=== PATIENT | female | born 1980 | race Caucasian/White ===

== ENCOUNTER 2017-04-18 13:44 | Emergency (ER) | payer OTHER ==
--- NOTE | 2017-04-18 15:09 | DIAGNOSTIC IMAGING REPORT ---
PROCEDURE: XR FOOT 3 VIEWS - RIGHT INDICATION: PAIN TECHNIQUE: Three views. COMPARISON: None. FINDINGS: Cortical defects of the proximal fifth metatarsal suggestive of healed fracture. There is no acute fracture or dislocation. Joint spaces and soft tissues are normal. IMPRESSION: 1. No acute fracture 2. Old right fifth metatarsal fracture
--- NOTE | 2017-04-18 15:17 | ED ORDER SUMMARY ---
..... Patient: VICTORIANO GARVIN OrderSheet [facility] VisitID: [id number] [address] [place] [address] 36y, F Registration Date/Time: 04/18/2017 ORDER SHEET Weight: 91.6 kg (stated) Allergies: Zithromax GENERAL ORDERS: Foot 3V Right Urgent (14:44 04/18/2017 Krysten BEACH) (Ack 14:47 [facility] ER Tech1) Splint (LE) (Left) (needs post op shoe) (15:09 04/18/2017 Krysten BEACH) (Ack 15:29 [facility] ER Tech1) MEDICATION ORDERS: IV FLUIDS: ORDER SHEET NOTES: [Electronically signed by Sheriff Nelly Jensen (15:47 04/18/2017)] [Electronically signed by Bharati hCarlton PA-C (21:44 04/18/2017)] [Electronically locked/signed by Sheriff Nelly Jensen (15:47 04/18/2017)]
--- NOTE | 2017-04-18 15:17 | ED CLINICAL REPORT ---
Clinical Report - Physicians/Mid Levels [facility] [address] [place] [address] 04/18/2017 13:45 Patient: RENETTA GARVIN Time Seen: 14:12; initial patient contact. Arrived- By private vehicle. Historian- patient. HISTORY OF PRESENT ILLNESS Chief Complaint: LOWER EXTREMITY PAIN. Modifying factors- worsened by standing. Relieved by walking. This started 6 weeks; ( Left foot pain getting worst. None injury related, going on for 6 weeks now.). Severity is described as being moderate. It has become recently worse. The quality is noted to be aching and "pain". Symptoms located in the area of the right foot. Location: lateral. The patient has had swelling. She has had difficulty walking. Patient denies an injury. Similar symptoms previously: None. Recent medical care: Not recently seen/assessed. REVIEW OF SYSTEMS All systems otherwise negative, except as recorded above. PAST HISTORY See nurses notes. Problems: Dental Caries. Acute Pain. Sprain. Contusion. Chronic Back Pain. Gastroesophageal Reflux. Immunizations. Tonsillitis. Strep Throat. Hypertension. Fibromyalgia. Tetanus Status. Medications: Cyclobenzaprine HCl Oral 10 mg, at bedtime. Cymbalta Oral. Lisinopril Oral 10 mg, daily. Ranitidine HCl Oral 150 mg, 2x a day. Allergies: Zithromax. SOCIAL HISTORY Smoker- current status unknown. Alcohol use. No drug use. FAMILY HISTORY Negative. ADDITIONAL NOTES The nursing notes have been reviewed with agreement regarding the chief complaint, HPI, ROS, PMH and patient medications and allergies. PHYSICAL EXAM Vital Signs: Have been reviewed. Appearance: Alert. Oriented X3. No acute distress. Skin: Skin intact. Skin warm and dry. Normal skin color. Normal skin turgor. Extremities: Right foot: moderate tenderness and mild swelling located in the lateral aspect of the mid foot and fifth toe(s). Limited weight bearing secondary to pain. Neurovascular intact distally. Extremities otherwise negative. Neuro: Oriented X 3. LABS, X-RAYS, AND EKG Rt Foot X-ray: (Name: Renetta Garvin : 1980 MR#: [id number] Ordering Provider: MODESTA FLORENCIA Exam(s): XR FOOT 3 VIEWS - RIGHT Date of Exam: 04/18/2017 __ PROCEDURE: XR FOOT 3 VIEWS - RIGHT INDICATION: PAIN TECHNIQUE: Three views. COMPARISON: None. FINDINGS: Cortical defects of the proximal fifth metatarsal suggestive of healed fracture. There is no acute fracture or dislocation. Joint spaces and soft tissues are normal. IMPRESSION: 1. No acute fracture 2. Old right fifth metatarsal fracture Electronically Final signed by:Eduar Mccain MD 04/18/2017 3:09:28 PM Technologist: KESHAV). The X-rays were independently viewed by me, interpreted by the radiologist and discussed with the radiologist. PROGRESS AND PROCEDURES PROCEDURES (post op shoe given). Course of Care: Patient is stable. Patient/family counseled. CLINICAL IMPRESSION Closed nondisplaced fracture of the right fifth metatarsal. INSTRUCTIONS Apply ice. Elevate affected areas above chest level. Wear splint (post op shoe). Wear post-op shoe for three weeks as needed and until better. Your Current Medications: CONTINUE TAKING THE FOLLOWING MEDICATIONS: Cyclobenzaprine HCl Oral : 10 mg at bedtime. Cymbalta Oral. Lisinopril Oral : 10 mg daily. Ranitidine HCl Oral : 150 mg 2x a day. Prescription Medications: Hydrocodone/APAP 5mg / 325mg: take 1 orally every 8 hours as needed for pain. Dispense ten (10). No refill. Follow-up: Follow up with an orthopedic surgeon- as recommended by your primary care physician. Reason for referral: right 5th mtp cortical defect with no history of trauma, needs further workup. Understanding of the discharge instructions verbalized by patient. [facility]-up with: [facility], , [address], , [place], [address] Follow up Thursday. Reason for referral: cortical defect right 5th mtp. (Electronically signed by Florencia Charlton PA-C 04/18/2017 21:44)
--- NOTE | 2017-04-18 15:17 | ED NURSING NOTES ---
Clinical Report - Nurses [facility] [place] [address] 04/18/2017 13:45 Patient: VICTORIANO GARVIN TRIAGE Triage time 13:52. Acuity: LEVEL 3. Chief Complaint: RIGHT LOWER EXTREMITY PAIN. --13:57 Sheriff Jensen R.N. 13:52 04/18/17. BP: 111/55. HR: 85. RR: 20. O2 saturation: 99%. Temp: 98 F. Pain level now: 05/02. --13:57 Sheriff Jensen R.N. Weight: 91.6 kg stated. Height/Length: 65 inches Per Patient. BMI: 33.6. --13:56 Sheriff Jensen R.N. Medications Cyclobenzaprine HCl Oral 10 mg, at bedtime. Cymbalta Oral. Lisinopril Oral 10 mg, daily. Ranitidine HCl Oral 150 mg, 2x a day. --13:54 Sheriff Jensen R.N. Allergies Zithromax. --13:54 Sheriff Jensen R.N. History Arrived by private vehicle. Historian: patient. Accompanied by friend. No injury occurred. Provoking / relieving factors: worsened by standing. ( Left foot pain getting worst. None injury related, going on for 6 weeks now.). PAST MEDICAL HX: Tetanus status: up-to-date. Immunizations: up-to-date. SURGERY HX: Cholecystectomy. SOCIAL HX: Smoker- current status unknown (4 Cigarettes daily). No alcohol use or drug use. FALL RISK ASSESSMENT: Fall risk assessment completed. No fall risk identified. NUTRITIONAL RISK ASSESSMENT: The nutritional risk assessment revealed no deficiencies. FUNCTIONAL ASSESSMENT: Functional assessment: no impairments noted. LEARNING NEEDS ASSESSMENT: The learning needs assessment revealed no barriers. SKIN INTEGRITY ASSESSMENT: Skin integrity risk assessment completed. No skin integrity risk identified. --13:57 Sheriff Jensen R.N. PROBLEMS: Dental Caries. Acute Pain. Sprain. Contusion. Chronic Back Pain. Gastroesophageal Reflux. Immunizations. Tonsillitis. Strep Throat. LNMP - Last Normal Menstrual Period. Hypertension. Fibromyalgia. Tetanus Status. --13:54 Sheriff Jensen R.N. PHYSICAL ASSESSMENT Ambulatory to room. GENERAL / NEURO / PSYCH: Oriented X 4. Alert. Appears in no acute distress. EXTREMITIES: Right foot: (Pain). SKIN: Skin intact. Skin is warm and dry. --13:57 Sheriff Jensen R.N. NURSING PROGRESS NOTES Two patient identifiers checked. Call light placed in reach. Side rails up x 2. Bed placed in lowest position. Brakes of bed on. --13:58 Sheriff Jensen R.N. DISPOSITION / DISCHARGE No learning barriers present. Discharge instructions provided and reviewed with the patient. Reviewed medication(s) side effects, precautions, dosing and course information. Prescription(s) given to the patient. Follow up contact number [phone]. Patient verbalized understanding. Written instructions provided in [place]uran. The patient was discharged by the physician event marketing assistant. She was discharged home and accompanied by developer prover upholstering. She left the Emergency Department ambulatory and via private vehicle. [employer] Consultant driving. --15:47 Sheriff Jensen R.N. Locked/Released at 04/18/2017 15:47 by Sheriff Jensen R.N.
--- NOTE | 2017-04-18 15:17 | ED CLINICAL REPORT ---
Clinical Report - Physicians/Mid Levels [facility] [address] [place] [address] 04/18/2017 13:45 Patient: RENETTA GARVIN Time Seen: 14:12; initial patient contact. Arrived- By private vehicle. Historian- patient. HISTORY OF PRESENT ILLNESS Chief Complaint: LOWER EXTREMITY PAIN. Modifying factors- worsened by standing. Relieved by walking. This started 6 weeks; ( Left foot pain getting worst. None injury related, going on for 6 weeks now.). Severity is described as being moderate. It has become recently worse. The quality is noted to be aching and "pain". Symptoms located in the area of the right foot. Location: lateral. The patient has had swelling. She has had difficulty walking. Patient denies an injury. Similar symptoms previously: None. Recent medical care: Not recently seen/assessed. REVIEW OF SYSTEMS All systems otherwise negative, except as recorded above. PAST HISTORY See nurses notes. Problems: Dental Caries. Acute Pain. Sprain. Contusion. Chronic Back Pain. Gastroesophageal Reflux. Immunizations. Tonsillitis. Strep Throat. Hypertension. Fibromyalgia. Tetanus Status. Medications: Cyclobenzaprine HCl Oral 10 mg, at bedtime. Cymbalta Oral. Lisinopril Oral 10 mg, daily. Ranitidine HCl Oral 150 mg, 2x a day. Allergies: Zithromax. SOCIAL HISTORY Smoker- current status unknown. Alcohol use. No drug use. FAMILY HISTORY Negative. ADDITIONAL NOTES The nursing notes have been reviewed with agreement regarding the chief complaint, HPI, ROS, PMH and patient medications and allergies. PHYSICAL EXAM Vital Signs: Have been reviewed. Appearance: Alert. Oriented X3. No acute distress. Skin: Skin intact. Skin warm and dry. Normal skin color. Normal skin turgor. Extremities: Right foot: moderate tenderness and mild swelling located in the lateral aspect of the mid foot and fifth toe(s). Limited weight bearing secondary to pain. Neurovascular intact distally. Extremities otherwise negative. Neuro: Oriented X 3. LABS, X-RAYS, AND EKG Rt Foot X-ray: (Name: Renetta Garvin : 1980 MR#: [id number] Ordering Provider: MODESTA FLORENCIA Exam(s): XR FOOT 3 VIEWS - RIGHT Date of Exam: 04/18/2017 __ PROCEDURE: XR FOOT 3 VIEWS - RIGHT INDICATION: PAIN TECHNIQUE: Three views. COMPARISON: None. FINDINGS: Cortical defects of the proximal fifth metatarsal suggestive of healed fracture. There is no acute fracture or dislocation. Joint spaces and soft tissues are normal. IMPRESSION: 1. No acute fracture 2. Old right fifth metatarsal fracture Electronically Final signed by:Eduar Mccain MD 04/18/2017 3:09:28 PM Technologist: KESHAV). The X-rays were independently viewed by me, interpreted by the radiologist and discussed with the radiologist. PROGRESS AND PROCEDURES PROCEDURES (post op shoe given). Course of Care: Patient is stable. Patient/family counseled. CLINICAL IMPRESSION Closed nondisplaced fracture of the right fifth metatarsal. INSTRUCTIONS Apply ice. Elevate affected areas above chest level. Wear splint (post op shoe). Wear post-op shoe for three weeks as needed and until better. Your Current Medications: CONTINUE TAKING THE FOLLOWING MEDICATIONS: Cyclobenzaprine HCl Oral : 10 mg at bedtime. Cymbalta Oral. Lisinopril Oral : 10 mg daily. Ranitidine HCl Oral : 150 mg 2x a day. Prescription Medications: Hydrocodone/APAP 5mg / 325mg: take 1 orally every 8 hours as needed for pain. Dispense ten (10). No refill. Follow-up: Follow up with an orthopedic surgeon- as recommended by your primary care physician. Reason for referral: right 5th mtp cortical defect with no history of trauma, needs further workup. Understanding of the discharge instructions verbalized by patient. Follow-up with: [facility], , [address], , [place], [address] Follow up Thursday. Reason for referral: cortical defect right 5th mtp. (Electronically signed by Florencia Charlton PA-C 04/18/2017 21:44)
--- NOTE | 2017-04-18 15:17 | ED NURSING NOTES ---
Clinical Report - Nurses [facility] [place] [address] 04/18/2017 13:45 Patient: VICTORIANO GARVIN TRIAGE Triage time 13:52. Acuity: LEVEL 3. Chief Complaint: RIGHT LOWER EXTREMITY PAIN. --13:57 Sheriff Jensen R.N. 13:52 04/18/17. BP: 111/55. HR: 85. RR: 20. O2 saturation: 99%. Temp: 98 F. Pain level now: 05/02. --13:57 Sheriff Jensen R.N. Weight: 91.6 kg stated. Height/Length: 65 inches Per Patient. BMI: 33.6. --13:56 Sheriff Jensen R.N. Medications Cyclobenzaprine HCl Oral 10 mg, at bedtime. Cymbalta Oral. Lisinopril Oral 10 mg, daily. Ranitidine HCl Oral 150 mg, 2x a day. --13:54 Sheriff Jensen R.N. Allergies Zithromax. --13:54 Sheriff Jensen R.N. History Arrived by private vehicle. Historian: patient. Accompanied by friend. No injury occurred. Provoking / relieving factors: worsened by standing. ( Left foot pain getting worst. None injury related, going on for 6 weeks now.). PAST MEDICAL HX: Tetanus status: up-to-date. Immunizations: up-to-date. SURGERY HX: Cholecystectomy. SOCIAL HX: Smoker- current status unknown (4 Cigarettes daily). No alcohol use or drug use. FALL RISK ASSESSMENT: Fall risk assessment completed. No fall risk identified. NUTRITIONAL RISK ASSESSMENT: The nutritional risk assessment revealed no deficiencies. FUNCTIONAL ASSESSMENT: Functional assessment: no impairments noted. LEARNING NEEDS ASSESSMENT: The learning needs assessment revealed no barriers. SKIN INTEGRITY ASSESSMENT: Skin integrity risk assessment completed. No skin integrity risk identified. --13:57 Sheriff Jensen R.N. PROBLEMS: Dental Caries. Acute Pain. Sprain. Contusion. Chronic Back Pain. Gastroesophageal Reflux. Immunizations. Tonsillitis. Strep Throat. LNMP - Last Normal Menstrual Period. Hypertension. Fibromyalgia. Tetanus Status. --13:54 Sheriff Jensen R.N. PHYSICAL ASSESSMENT Ambulatory to room. GENERAL / NEURO / PSYCH: Oriented X 4. Alert. Appears in no acute distress. EXTREMITIES: Right foot: (Pain). SKIN: Skin intact. Skin is warm and dry. --13:57 Sheriff Jensen R.N. NURSING PROGRESS NOTES Two patient identifiers checked. Call light placed in reach. Side rails up x 2. Bed placed in lowest position. Brakes of bed on. --13:58 Sheriff Jensen R.N. DISPOSITION / DISCHARGE No learning barriers present. Discharge instructions provided and reviewed with the patient. Reviewed medication(s) side effects, precautions, dosing and course information. Prescription(s) given to the patient. Follow up contact number [phone]. Patient verbalized understanding. Written instructions provided in Cook Islander. The patient was discharged by the physician assistant auto center manager. She was discharged home and accompanied by museum service scheduler. She left the Emergency Department ambulatory and via private vehicle. Campus Manager driving. --15:47 Sheriff Jensen R.N. Locked/Released at 04/18/2017 15:47 by Sheriff Jensen R.N.
--- NOTE | 2017-04-18 15:17 | ED ORDER SUMMARY ---
..... Patient: VICTORIANO GARVIN OrderSheet [facility] VisitID: [id number] [address] [place] [address] 36y, F Registration Date/Time: 04/18/2017 ORDER SHEET Weight: 91.6 kg (stated) Allergies: Zithromax GENERAL ORDERS: Foot 3V Right Urgent (14:44 04/18/2017 Krysten BEACH) (Ack 14:47 IJurca ER Tech1) Splint (LE) (Left) (needs post op shoe) (15:09 04/18/2017 Krysten BEACH) (Ack 15:29 IJurca ER Tech1) MEDICATION ORDERS: IV FLUIDS: ORDER SHEET NOTES: [Electronically signed by Sheriff Nelly Jensen (15:47 04/18/2017)] [Electronically signed by Bharati Charlton PA-C (21:44 04/18/2017)] [Electronically locked/signed by Sheriff Nelly Jensen (15:47 04/18/2017)]
--- NOTE | 2017-04-18 21:44 | ED DISCHARGE INSTRUCTIONS ---
Patient: VICTORIANO GARVIN General Instructions [facility] VisitID: [id number] [address] [place] [address] 36y, F Registration Date/Time: 04/18/2017 Closed nondisplaced fracture of the right fifth metatarsal. INSTRUCTIONS Apply ice. Elevate affected areas above chest level. Wear splint (post op shoe). Wear post-op shoe for three weeks as needed and until better. Your Current Medications: CONTINUE TAKING THE FOLLOWING MEDICATIONS: Cyclobenzaprine HCl Oral : 10 mg at bedtime. Cymbalta Oral. Lisinopril Oral : 10 mg daily. Ranitidine HCl Oral : 150 mg 2x a day. Prescription Medications: Hydrocodone/APAP 5mg / 325mg: take 1 orally every 8 hours as needed for pain. Dispense ten (10). No refill. Follow-up: Follow up with an orthopedic surgeon- as recommended by your primary care physician. Reason for referral: right 5th mtp cortical defect with no history of trauma, needs further workup. Understanding of the discharge instructions verbalized by patient. Follow-up with: [facility], , [address], [place], [address] Follow up Thursday. Reason for referral: cortical defect right 5th mtp. ADDITIONAL INFORMATION Fracture:Foot You have a fracture (break) of one of the bones in your foot. This will cause pain, swelling and sometimes bruising. It will take about 4-6 weeks to heal. A foot fracture may be treated with a special shoe, splint, cast or boot. Home Care: You may be given a splint, cast, shoe or boot to prevent movement at the injury. Unless you were told otherwise, use crutches or a walker and do not bear weight on the injured foot until cleared by your doctor to do so. (Crutches and walkers can be rented at many pharmacies and surgical/orthopedic supply stores). Do not put weight on a splint; it will break. Keep your leg elevated to reduce pain and swelling. When sleeping, place a pillow under the injured leg. When sitting, support the injured leg so it is level with your waist. This is very important during the first 48 hours. Apply an ice pack (ice cubes in a plastic bag, wrapped in a towel) over the injured area for 20 minutes every 1-2 hours the first day. You can place the ice pack directly over the splint/cast. Unless told otherwise, you can open the boot or shoe to apply ice. Continue with ice packs 3-4 times a day for the next two days, then as needed for the relief of pain and swelling. Keep the splint/cast/boot/shoe dry. When bathing, protect it with a large plastic bag, rubber-banded at the top end. If a fiberglass splint/cast or boot gets wet, you can dry it with a hair-dryer. Unless told otherwise, you can remove a boot or shoe to bathe. You may use acetaminophen (Tylenol) or ibuprofen (Motrin, Advil) to control pain, unless another pain medicine was prescribed. [NOTE: If you have chronic liver or kidney disease or ever had a stomach ulcer or GI bleeding, talk with your doctor before using these medicines.] Follow Up with your doctor within one week, or as advised by our staff, to be sure the bone is healing properly. If you were given a splint, it may be changed to a cast or boot at your follow-up visit.[NOTE: A radiologist will review any X-rays that were taken. We will notify you of any new findings that may affect your care.] Get Prompt Medical Attention if any of the following occur: The plaster cast or splint becomes wet or soft The fiberglass cast or splint remains wet for more than 24 hours Increased tightness or pain under the cast or splint Toes become swollen, cold, blue, numb or tingly You have been given the following additional information: Fracture, Foot (Electronically signed by Bharati Charlton PA-C 04/18/2017 21:44)
--- NOTE | 2017-04-18 21:44 | ED DISCHARGE INSTRUCTIONS ---
Patient: VICTORIANO GARVIN General Instructions [facility] VisitID: [id number] [address] [place] [address] 36y, F Registration Date/Time: 04/18/2017 Closed nondisplaced fracture of the right fifth metatarsal. INSTRUCTIONS Apply ice. Elevate affected areas above chest level. Wear splint (post op shoe). Wear post-op shoe for three weeks as needed and until better. Your Current Medications: CONTINUE TAKING THE FOLLOWING MEDICATIONS: Cyclobenzaprine HCl Oral : 10 mg at bedtime. Cymbalta Oral. Lisinopril Oral : 10 mg daily. Ranitidine HCl Oral : 150 mg 2x a day. Prescription Medications: Hydrocodone/APAP 5mg / 325mg: take 1 orally every 8 hours as needed for pain. Dispense ten (10). No refill. Follow-up: Follow up with an orthopedic surgeon- as recommended by your primary care physician. Reason for referral: right 5th mtp cortical defect with no history of trauma, needs further workup. Understanding of the discharge instructions verbalized by patient. Follow-up with: [facility], , [address], [place], [address] Follow up Thursday. Reason for referral: cortical defect right 5th mtp. ADDITIONAL INFORMATION Fracture:Foot You have a fracture (break) of one of the bones in your foot. This will cause pain, swelling and sometimes bruising. It will take about 4-6 weeks to heal. A foot fracture may be treated with a special shoe, splint, cast or boot. Home Care: You may be given a splint, cast, shoe or boot to prevent movement at the injury. Unless you were told otherwise, use crutches or a walker and do not bear weight on the injured foot until cleared by your doctor to do so. (Crutches and walkers can be rented at many pharmacies and surgical/orthopedic supply stores). Do not put weight on a splint; it will break. Keep your leg elevated to reduce pain and swelling. When sleeping, place a pillow under the injured leg. When sitting, support the injured leg so it is level with your waist. This is very important during the first 48 hours. Apply an ice pack (ice cubes in a plastic bag, wrapped in a towel) over the injured area for 20 minutes every 1-2 hours the first day. You can place the ice pack directly over the splint/cast. Unless told otherwise, you can open the boot or shoe to apply ice. Continue with ice packs 3-4 times a day for the next two days, then as needed for the relief of pain and swelling. Keep the splint/cast/boot/shoe dry. When bathing, protect it with a large plastic bag, rubber-banded at the top end. If a fiberglass splint/cast or boot gets wet, you can dry it with a hair-dryer. Unless told otherwise, you can remove a boot or shoe to bathe. You may use acetaminophen (Tylenol) or ibuprofen (Motrin, Advil) to control pain, unless another pain medicine was prescribed. [NOTE: If you have chronic liver or kidney disease or ever had a stomach ulcer or GI bleeding, talk with your doctor before using these medicines.] Follow Up with your doctor within one week, or as advised by our staff, to be sure the bone is healing properly. If you were given a splint, it may be changed to a cast or boot at your follow-up visit.[NOTE: A radiologist will review any X-rays that were taken. We will notify you of any new findings that may affect your care.] Get Prompt Medical Attention if any of the following occur: The plaster cast or splint becomes wet or soft The fiberglass cast or splint remains wet for more than 24 hours Increased tightness or pain under the cast or splint Toes become swollen, cold, blue, numb or tingly You have been given the following additional information: Fracture, Foot (Electronically signed by Bharati Charlton PA-C 04/18/2017 21:44)
--- NOTE | 2017-04-18 21:44 | ED MED RECONCILIATION SUMMARY ---
Patient: VICTORIANO GARVIN Medication Reconciliation Report [facility] VisitID: [id number] [place] [address] 36y, F Registration Date/Time: 04/18/2017 Weight: 91.6 kg Height/Length: 65 in. BMI: 33.6 ALLERGIES: Zithromax The patient's Home Medications are listed below: CONTINUE TAKING THE FOLLOWING MEDICATIONS: Cyclobenzaprine HCl Oral 10 mg, at bedtime Cymbalta Oral Lisinopril Oral 10 mg, daily Ranitidine HCl Oral 150 mg, 2x a day The source(s) of the original Home Medication information: Not obtained. The following Medications were given to the patient in the Emergency Department: None. The following Medications were prescribed to the patient: Hydrocodone/APAP 5mg / 325mg: take 1 orally every 8 hours as needed for pain. Dispense ten (10). No refill. -- Bharati Charlton PA-C
--- NOTE | 2017-04-18 21:44 | ED MED RECONCILIATION SUMMARY ---
Patient: VICTORIANO GARVIN Medication Reconciliation Report [facility] VisitID: [id number] [place] [address] 36y, F Registration Date/Time: 04/18/2017 Weight: 91.6 kg Height/Length: 65 in. BMI: 33.6 ALLERGIES: Zithromax The patient's Home Medications are listed below: CONTINUE TAKING THE FOLLOWING MEDICATIONS: Cyclobenzaprine HCl Oral 10 mg, at bedtime Cymbalta Oral Lisinopril Oral 10 mg, daily Ranitidine HCl Oral 150 mg, 2x a day The source(s) of the original Home Medication information: Not obtained. The following Medications were given to the patient in the Emergency Department: None. The following Medications were prescribed to the patient: Hydrocodone/APAP 5mg / 325mg: take 1 orally every 8 hours as needed for pain. Dispense ten (10). No refill. -- Bharati Charlton PA-C
--- NOTE | 2017-04-18 21:44 | ED MAR SUMMARY ---
..... Medication Administration Record [facility] [address] [place], [place] [id number] Patient: VICTORIANO GARVIN Visit ID: [id number] 36y, F Weight: 91.6 kg Height/Length: 65 in BMI: 33.6 ALLERGIES: Zithromax
--- NOTE | 2017-04-18 21:44 | ED MAR SUMMARY ---
..... Medication Administration Record [facility] [address] [place], [place] [id number] Patient: VICTORIANO GARVIN Visit ID: [id number] 36y, F Weight: 91.6 kg Height/Length: 65 in BMI: 33.6 ALLERGIES: Zithromax
== END 2017-04-18 15:45 | disposition home or self-care (01) ==
LOC: ED SRH 13:44
DX: S92.354A Nondisplaced fracture of fifth metatarsal bone, right foot, initial encounter for closed fracture (principal); X58.XXXA Exposure to other specified factors, initial encounter; K21.9 Gastro-esophageal reflux disease without esophagitis; I10 Essential (primary) hypertension; Z79.899 Other long term (current) drug therapy; Z88.1 Allergy status to other antibiotic agents; Z72.0 Tobacco use

== ENCOUNTER 2017-04-29 22:19 | Emergency (ER) | payer OTHER ==
--- NOTE | 2017-04-29 23:47 | ED CLINICAL REPORT ---
Clinical Report - Physicians/Mid Levels [facility] [address] [place] [address] 04/29/2017 22:20 Patient: VICTORIANO GARVIN Time Seen: 22:56. Arrived- By private vehicle. Historian- patient. HISTORY OF PRESENT ILLNESS Chief Complaint: Injury to the right foot. The injury happened today. Occurred at home. The patient sustained a direct blow. Patient is experiencing moderate pain. No other injury. (Pt had an old fracture to the area, and feels she exacerbated it.). REVIEW OF SYSTEMS The patient complains of pain on weight bearing. No swelling, tingling, weakness, numbness or suspected foreign body. No skin laceration. All systems otherwise negative, except as recorded above. PAST HISTORY Problems: Foot Fracture. Dental Caries. Chronic Back Pain. Gastroesophageal Reflux. Immunizations. LNMP - Last Normal Menstrual Period. Hypertension. Fibromyalgia. Tetanus Status. Additional Surgeries: Carpal Tunnel Surgery. Cholecystectomy. Medications: Cyclobenzaprine HCl Oral 10 mg, at bedtime. Cymbalta Oral. Lisinopril Oral 10 mg, daily. Ranitidine HCl Oral 150 mg, 2x a day. Allergies: Zithromax. SOCIAL HISTORY Smoker- current status unknown. No alcohol use or drug use. ADDITIONAL NOTES The nursing notes have been reviewed. PHYSICAL EXAM Vital Signs: 04/29/2017 22:23 BP: 138/78. HR: 84. RR: 20. O2 saturation: 100%. Temp: 98.2 F. Have been reviewed. Appearance: Alert. Oriented X3. No acute distress. Head: Head atraumatic. Eyes: Eyes normal inspection. ENT: Nose normal. Neck: Normal inspection. No decreased ROM in the neck. CVS: Pulses normal. Respiratory: No respiratory distress. Back: ROM normal. Skin: Skin intact. Skin warm and dry. Extremities: Base of the right 5th metatarsal: moderate tenderness. Weight bearing painful. Neurovascular intact distally. No erythema, swelling, laceration, abrasion or ecchymosis. No puncture wound, foreign body or deformity. No ankle injury. Foot and ankle exam otherwise negative. Extremities otherwise negative. Neuro, Vascular and Tendons: Vascular status intact. Sensation intact. Motor intact. Tendon function intact. Gait: Gait not tested due to pain. Neuro: No motor deficit. No sensory deficit. (Pt is grossly oriented.). LABS, X-RAYS, AND EKG Rt Foot X-ray: Right foot fracture: (widened old fx of mid-shaft 5th metatarsal) No open right foot fracture. Soft tissues normal. Joint spaces normal. No air in the soft tissue or foreign body. Views: 3 view foot series. Technique: good. The X-rays were independently viewed by me and interpreted contemporaneously by me. A comparison with prior films reveals that the findings have worsened. Pulse Oximetry: 04/29/2017 22:23 O2 saturation: 100%. (FIO2 - room air). Interpretation: normal. PROGRESS AND PROCEDURES Course of Care: PT's x-ray showed what appeared to be a re-fracture of pt's healing, mid-shaft 5th metatarsal fx. Pt was given a pair of crutches. She already had a post-op shoe. I have referred her to podiatry for f/u. Patient counseled in person regarding the patient's stable condition, test results, diagnosis and need for follow-up. Concerns were addressed. Old medical records reviewed. Disposition: Discharged. Condition: stable. CLINICAL IMPRESSION Closed nondisplaced fracture of the shaft of the fifth metatarsal of the left foot. INSTRUCTIONS Warnings: GENERAL WARNINGS: Return or contact your physician immediately if your condition worsens or changes unexpectedly, if not improving as expected, or if other problems arise. Your Current Medications: CONTINUE TAKING THE FOLLOWING MEDICATIONS: Cyclobenzaprine HCl Oral : 10 mg at bedtime. Cymbalta Oral. Lisinopril Oral : 10 mg daily. Ranitidine HCl Oral : 150 mg 2x a day. Prescription Medications: Hydrocodone/APAP 5mg / 325mg: take 1-2 orally every 4 hours as needed for pain. Dispense twenty (20). No refill. Understanding of the discharge instructions verbalized by patient. Follow-up with: Liam Johnston DPM, Podiatry, , [facility], [address] [place] [address], [address], [place] [address] Follow up. Call for the next available appointment. (Electronically signed by Kika Allan MD 05/08/2017 12:01)
--- NOTE | 2017-04-29 23:47 | ED NURSING NOTES ---
Clinical Report - Nurses [facility] [place] [address] 04/29/2017 22:20 Patient: VICTORIANO GARVIN TRIAGE Triage time 22:23. Acuity: LEVEL 3. Chief Complaint: RIGHT LOWER EXTREMITY PAIN. --22:28 Sheriff Jensen R.N. 22:22 04/29/17. BP: 138/78. HR: 84. RR: 20. O2 saturation: 100% at 7 liters/minute. Temp: 98.2 F. --22:28 Sheriff Jensen R.N. Weight: 92.9 kg stated. Height/Length: 65 inches Per Patient. BMI: 34.1. --22:23 Sheriff Jensen R.N. Medications Cyclobenzaprine HCl Oral 10 mg, at bedtime. Cymbalta Oral. Lisinopril Oral 10 mg, daily. Ranitidine HCl Oral 150 mg, 2x a day. --22:26 Sheriff Jensen R.N. Allergies Zithromax. --22:26 Sheriff Jensen R.N. History Arrived by private vehicle. Historian: patient. An injury may have occurred. Location of injuries: right foot. Occurred at home. ( Old injury to left foot, tripped on it yesterday and pain getting worst.). PAST MEDICAL HX: Tetanus status: up-to-date. Immunizations: up-to-date. SURGERY HX: Right and left carpal tunnel surgery. Cholecystectomy. SOCIAL HX: Smoker- current status unknown (3 cigarettes a day.). No alcohol use or drug use. FALL RISK ASSESSMENT: Fall risk assessment completed. No fall risk identified. NUTRITIONAL RISK ASSESSMENT: The nutritional risk assessment revealed no deficiencies. FUNCTIONAL ASSESSMENT: Functional assessment: no impairments noted. LEARNING NEEDS ASSESSMENT: The learning needs assessment revealed no barriers. SKIN INTEGRITY ASSESSMENT: Skin integrity risk assessment completed. No skin integrity risk identified. --22:28 Sheriff Jensen R.N. PROBLEMS: Foot Fracture. Dental Caries. Acute Pain. Sprain. Contusion. Chronic Back Pain. Gastroesophageal Reflux. Immunizations. Tonsillitis. Strep Throat. LNMP - Last Normal Menstrual Period. Hypertension. Fibromyalgia. Tetanus Status. --22: Sheriff Jensen R.N. Interventions ID band on patient. --22:28 Sheriff Jensen R.N. PHYSICAL ASSESSMENT GENERAL / NEURO / PSYCH: Oriented X 4. Alert. Appears in no acute distress. EXTREMITIES: Right dorsal foot: tenderness. SKIN: Skin intact. Skin is warm and dry. --22:28 Sheriff Jensen R.N. NURSING PROGRESS NOTES Two patient identifiers checked. Call light placed in reach. Side rails up x 2. Bed placed in lowest position. Brakes of bed on. --22:28 Sheriff Jensen R.N. 23:17 04/29/2017 Ibuprofen PO 800 mg given. Allergies verified and confirmed 5 rights. --23:22 Margarita Vargas R.N. 23:17 04/29/2017 TYLENOL W CODEINE (Acetaminophen-Codeine) PO 1 tab given. Allergies verified and confirmed 5 rights. --23:22 Margarita Vargas R.N. Patient fit with new crutches. Crutch training performed by nurse; the patient demonstrated proper use. --00:28 Margarita Vargas R.N. DISPOSITION / DISCHARGE Condition at departure: improved. No learning barriers present. Discharge instructions provided and reviewed with the patient and family. Reviewed medication(s) side effects and course information. Prescription(s) given to the patient. Patient verbalized understanding. Written instructions provided in Nepali. The patient was discharged by the physician. She was discharged home and accompanied by family. She left the Emergency Department ambulatory and via private vehicle. Family member driving. --00:29 Margarita Vargas R.N. 00:27 04/30/17. BP: 120/69. HR: 75. RR: 17. O2 saturation: 99%. Temp: 98.2 F. Pain level now: 05/02. --00:29 Margarita Vargas R.N. Locked/Released at 04/30/2017 0:29 by Margarita Vargas R.N.
--- NOTE | 2017-04-29 23:47 | ED CLINICAL REPORT ---
Clinical Report - Physicians/Mid Levels [facility] [address] [place] [address] 04/29/2017 22:20 Patient: VICTORIANO GARVIN Time Seen: 22:56. Arrived- By private vehicle. Historian- patient. HISTORY OF PRESENT ILLNESS Chief Complaint: Injury to the right foot. The injury happened today. Occurred at home. The patient sustained a direct blow. Patient is experiencing moderate pain. No other injury. (Pt had an old fracture to the area, and feels she exacerbated it.). REVIEW OF SYSTEMS The patient complains of pain on weight bearing. No swelling, tingling, weakness, numbness or suspected foreign body. No skin laceration. All systems otherwise negative, except as recorded above. PAST HISTORY Problems: Foot Fracture. Dental Caries. Chronic Back Pain. Gastroesophageal Reflux. Immunizations. LNMP - Last Normal Menstrual Period. Hypertension. Fibromyalgia. Tetanus Status. Additional Surgeries: Carpal Tunnel Surgery. Cholecystectomy. Medications: Cyclobenzaprine HCl Oral 10 mg, at bedtime. Cymbalta Oral. Lisinopril Oral 10 mg, daily. Ranitidine HCl Oral 150 mg, 2x a day. Allergies: Zithromax. SOCIAL HISTORY Smoker- current status unknown. No alcohol use or drug use. ADDITIONAL NOTES The nursing notes have been reviewed. PHYSICAL EXAM Vital Signs: 04/29/2017 22:23 BP: 138/78. HR: 84. RR: 20. O2 saturation: 100%. Temp: 98.2 F. Have been reviewed. Appearance: Alert. Oriented X3. No acute distress. Head: Head atraumatic. Eyes: Eyes normal inspection. ENT: Nose normal. Neck: Normal inspection. No decreased ROM in the neck. CVS: Pulses normal. Respiratory: No respiratory distress. Back: ROM normal. Skin: Skin intact. Skin warm and dry. Extremities: Base of the right 5th metatarsal: moderate tenderness. Weight bearing painful. Neurovascular intact distally. No erythema, swelling, laceration, abrasion or ecchymosis. No puncture wound, foreign body or deformity. No ankle injury. Foot and ankle exam otherwise negative. Extremities otherwise negative. Neuro, Vascular and Tendons: Vascular status intact. Sensation intact. Motor intact. Tendon function intact. Gait: Gait not tested due to pain. Neuro: No motor deficit. No sensory deficit. (Pt is grossly oriented.). LABS, X-RAYS, AND EKG Rt Foot X-ray: Right foot fracture: (widened old fx of mid-shaft 5th metatarsal) No open right foot fracture. Soft tissues normal. Joint spaces normal. No air in the soft tissue or foreign body. Views: 3 view foot series. Technique: good. The X-rays were independently viewed by me and interpreted contemporaneously by me. A comparison with prior films reveals that the findings have worsened. Pulse Oximetry: 04/29/2017 22:23 O2 saturation: 100%. (FIO2 - room air). Interpretation: normal. PROGRESS AND PROCEDURES Course of Care: PT's x-ray showed what appeared to be a re-fracture of pt's healing, mid-shaft 5th metatarsal fx. Pt was given a pair of crutches. She already had a post-op shoe. I have referred her to podiatry for f/u. Patient counseled in person regarding the patient's stable condition, test results, diagnosis and need for follow-up. Concerns were addressed. Old medical records reviewed. Disposition: Discharged. Condition: stable. CLINICAL IMPRESSION Closed nondisplaced fracture of the shaft of the fifth metatarsal of the left foot. INSTRUCTIONS Warnings: GENERAL WARNINGS: Return or contact your physician immediately if your condition worsens or changes unexpectedly, if not improving as expected, or if other problems arise. Your Current Medications: CONTINUE TAKING THE FOLLOWING MEDICATIONS: Cyclobenzaprine HCl Oral : 10 mg at bedtime. Cymbalta Oral. Lisinopril Oral : 10 mg daily. Ranitidine HCl Oral : 150 mg 2x a day. Prescription Medications: Hydrocodone/APAP 5mg / 325mg: take 1-2 orally every 4 hours as needed for pain. Dispense twenty (20). No refill. Understanding of the discharge instructions verbalized by patient. Follow-up with: Liam Johnston DPM, Podiatry, , [facility], [address] [place] [address], [address], [place] [address] Follow up. Call for the next available appointment. (Electronically signed by Kika Allan MD 05/08/2017 12:01)
--- NOTE | 2017-04-29 23:47 | ED ORDER SUMMARY ---
..... Patient: VICTORIANO GARVIN OrderSheet [facility] VisitID: [id number] [place] [address] 36y, F Registration Date/Time: 04/29/2017 ORDER SHEET Weight: 92.9 kg (stated) Allergies: Zithromax GENERAL ORDERS: Foot 3V Right Urgent (23:08 04/29/2017 Daksha JONES) (23:22 KPage-Sd R.N.) Crutches (23:44 04/29/2017 Daksha JONES) (23:51 KPage-Sd R.N.) MEDICATION ORDERS: Ibuprofen PO 800 mg (NOW) (23:08 04/29/2017 Daksha JONES) (Ack 23:11 KPage-Jorgen R.N.) (23:22 KPage-Jorgen R.N.) Tylenol w Codeine PO 1 tab (HIGH ALERT MEDICATION, NOW) (23:09 04/29/2017 Daksha JONES) (Ack 23:11 KPage-Clementechan R.N.) (23:22 KPage-Kuchan R.N.) IV FLUIDS: ORDER SHEET NOTES: [Electronically signed by Margarita Vargas R.N. (00:29 04/30/2017)] [Electronically signed by Kika Allan MD (12:01 05/08/2017)] [Electronically locked/signed by Margarita Vargas R.N. (00:29 04/30/2017)]
--- NOTE | 2017-04-29 23:47 | ED ORDER SUMMARY ---
..... Patient: VICTORIANO GARVIN OrderSheet [facility] VisitID: [id number] [place] [address] 36y, F Registration Date/Time: 04/29/2017 ORDER SHEET Weight: 92.9 kg (stated) Allergies: Zithromax GENERAL ORDERS: Foot 3V Right Urgent (23:08 04/29/2017 Daksha JONES) (23:22 KPage-Sd R.N.) Crutches (23:44 04/29/2017 Daksha JONES) (23:51 KPage-Sd R.N.) MEDICATION ORDERS: Ibuprofen PO 800 mg (NOW) (23:08 04/29/2017 Daksha JONES) (Ack 23:11 KPage-Jorgen R.N.) (23:22 KPage-Jorgen R.N.) Tylenol w Codeine PO 1 tab (HIGH ALERT MEDICATION, NOW) (23:09 04/29/2017 Daksha JONES) (Ack 23:11 KPage-Clementechan R.N.) (23:22 KPage-Kuchan R.N.) IV FLUIDS: ORDER SHEET NOTES: [Electronically signed by Margarita Vargas R.N. (00:29 04/30/2017)] [Electronically signed by Kika Allan MD (12:01 05/08/2017)] [Electronically locked/signed by Margarita Vargas R.N. (00:29 04/30/2017)]
--- NOTE | 2017-04-30 10:49 | DIAGNOSTIC IMAGING REPORT ---
PROCEDURE: XR FOOT 3 VIEWS - RIGHT INDICATION: TRAUMA/INJURY TECHNIQUE: Four view of the right foot. COMPARISON: 04/18/2017 FINDINGS: Normal mineralization. There is a lucency along the lateral cortex of the fifth metatarsal in the proximal diaphysis with a small amount of smooth periostitis. Morphology is that of healing, non-united, subacute fracture. The AP image demonstrates an acute appearing irregular linear lucency coursing completely across the diaphysis, more pronounced than on the prior study. No dislocation. No radiodense foreign body. IMPRESSION: 1. There may be acute on subacute complete transverse fracture across the proximal diaphysis of the fifth metatarsal. Fracture plane is more prominent than on prior studies, however the lateral cortex demonstrates findings of partially healed fracture.
--- NOTE | 2017-05-08 12:02 | ED DISCHARGE INSTRUCTIONS ---
Patient: VICTORIANO GARVIN General Instructions [facility] VisitID: [id number] [place] [address] 36y, F Registration Date/Time: 04/29/2017 Closed nondisplaced fracture of the shaft of the fifth metatarsal of the left foot. INSTRUCTIONS Warnings: GENERAL WARNINGS: Return or contact your physician immediately if your condition worsens or changes unexpectedly, if not improving as expected, or if other problems arise. Your Current Medications: CONTINUE TAKING THE FOLLOWING MEDICATIONS: Cyclobenzaprine HCl Oral : 10 mg at bedtime. Cymbalta Oral. Lisinopril Oral : 10 mg daily. Ranitidine HCl Oral : 150 mg 2x a day. Prescription Medications: Hydrocodone/APAP 5mg / 325mg: take 1-2 orally every 4 hours as needed for pain. Dispense twenty (20). No refill. Understanding of the discharge instructions verbalized by patient. Follow-up with: Liam Johnston DPM, Podiatry, , [facility], [address] [place] [address], [address] [address] Follow up. Call for the next available appointment. ADDITIONAL INFORMATION Fracture:Foot You have a fracture (break) of one of the bones in your foot. This will cause pain, swelling and sometimes bruising. It will take about 4-6 weeks to heal. A foot fracture may be treated with a special shoe, splint, cast or boot. Home Care: You may be given a splint, cast, shoe or boot to prevent movement at the injury. Unless you were told otherwise, use crutches or a walker and do not bear weight on the injured foot until cleared by your doctor to do so. (Crutches and walkers can be rented at many pharmacies and surgical/orthopedic supply stores). Do not put weight on a splint; it will break. Keep your leg elevated to reduce pain and swelling. When sleeping, place a pillow under the injured leg. When sitting, support the injured leg so it is level with your waist. This is very important during the first 48 hours. Apply an ice pack (ice cubes in a plastic bag, wrapped in a towel) over the injured area for 20 minutes every 1-2 hours the first day. You can place the ice pack directly over the splint/cast. Unless told otherwise, you can open the boot or shoe to apply ice. Continue with ice packs 3-4 times a day for the next two days, then as needed for the relief of pain and swelling. Keep the splint/cast/boot/shoe dry. When bathing, protect it with a large plastic bag, rubber-banded at the top end. If a fiberglass splint/cast or boot gets wet, you can dry it with a hair-dryer. Unless told otherwise, you can remove a boot or shoe to bathe. You may use acetaminophen (Tylenol) or ibuprofen (Motrin, Advil) to control pain, unless another pain medicine was prescribed. [NOTE: If you have chronic liver or kidney disease or ever had a stomach ulcer or GI bleeding, talk with your doctor before using these medicines.] Follow Up with your doctor within one week, or as advised by our staff, to be sure the bone is healing properly. If you were given a splint, it may be changed to a cast or boot at your follow-up visit.[NOTE: A radiologist will review any X-rays that were taken. We will notify you of any new findings that may affect your care.] Get Prompt Medical Attention if any of the following occur: The plaster cast or splint becomes wet or soft The fiberglass cast or splint remains wet for more than 24 hours Increased tightness or pain under the cast or splint Toes become swollen, cold, blue, numb or tingly You have been given the following additional information: Fracture, Foot (Electronically signed by Kika Allan MD 05/08/2017 12:01)
--- NOTE | 2017-05-08 12:02 | ED MAR SUMMARY ---
..... Medication Administration Record [facility] [address] [place] [address] Patient: VICTORIANO GARVIN Visit ID: [id number] 36y, F Weight: 92.9 kg Height/Length: 65 in BMI: 34.1 ALLERGIES: Zithromax Given 23:04/29/2017 Margarita Vargas, RShereenNShereen Medication Administered: IBUPROFEN [PO], Dose: 800 mg PO. Medication Ordered: Ibuprofen PO 800 mg (NOW). Given 23:04/29/2017 Margarita Vargas, RShereenN. Medication Administered: TYLENOL W CODEINE [PO] (ACETAMINOPHEN-CODEINE), Dose: 1 tab PO. Medication Ordered: Tylenol w Codeine PO 1 tab (HIGH ALERT MEDICATION, NOW).
--- NOTE | 2017-05-08 12:02 | ED DISCHARGE INSTRUCTIONS ---
Patient: VICTORIANO GARVIN General Instructions [facility] VisitID: [id number] [place] [address] 36y, F Registration Date/Time: 04/29/2017 Closed nondisplaced fracture of the shaft of the fifth metatarsal of the left foot. INSTRUCTIONS Warnings: GENERAL WARNINGS: Return or contact your physician immediately if your condition worsens or changes unexpectedly, if not improving as expected, or if other problems arise. Your Current Medications: CONTINUE TAKING THE FOLLOWING MEDICATIONS: Cyclobenzaprine HCl Oral : 10 mg at bedtime. Cymbalta Oral. Lisinopril Oral : 10 mg daily. Ranitidine HCl Oral : 150 mg 2x a day. Prescription Medications: Hydrocodone/APAP 5mg / 325mg: take 1-2 orally every 4 hours as needed for pain. Dispense twenty (20). No refill. Understanding of the discharge instructions verbalized by patient. Follow-up with: Liam Johnston DPM, Podiatry, , [facility], [address] [place] [address], [address] [address] Follow up. Call for the next available appointment. ADDITIONAL INFORMATION Fracture:Foot You have a fracture (break) of one of the bones in your foot. This will cause pain, swelling and sometimes bruising. It will take about 4-6 weeks to heal. A foot fracture may be treated with a special shoe, splint, cast or boot. Home Care: You may be given a splint, cast, shoe or boot to prevent movement at the injury. Unless you were told otherwise, use crutches or a walker and do not bear weight on the injured foot until cleared by your doctor to do so. (Crutches and walkers can be rented at many pharmacies and surgical/orthopedic supply stores). Do not put weight on a splint; it will break. Keep your leg elevated to reduce pain and swelling. When sleeping, place a pillow under the injured leg. When sitting, support the injured leg so it is level with your waist. This is very important during the first 48 hours. Apply an ice pack (ice cubes in a plastic bag, wrapped in a towel) over the injured area for 20 minutes every 1-2 hours the first day. You can place the ice pack directly over the splint/cast. Unless told otherwise, you can open the boot or shoe to apply ice. Continue with ice packs 3-4 times a day for the next two days, then as needed for the relief of pain and swelling. Keep the splint/cast/boot/shoe dry. When bathing, protect it with a large plastic bag, rubber-banded at the top end. If a fiberglass splint/cast or boot gets wet, you can dry it with a hair-dryer. Unless told otherwise, you can remove a boot or shoe to bathe. You may use acetaminophen (Tylenol) or ibuprofen (Motrin, Advil) to control pain, unless another pain medicine was prescribed. [NOTE: If you have chronic liver or kidney disease or ever had a stomach ulcer or GI bleeding, talk with your doctor before using these medicines.] Follow Up with your doctor within one week, or as advised by our staff, to be sure the bone is healing properly. If you were given a splint, it may be changed to a cast or boot at your follow-up visit.[NOTE: A radiologist will review any X-rays that were taken. We will notify you of any new findings that may affect your care.] Get Prompt Medical Attention if any of the following occur: The plaster cast or splint becomes wet or soft The fiberglass cast or splint remains wet for more than 24 hours Increased tightness or pain under the cast or splint Toes become swollen, cold, blue, numb or tingly You have been given the following additional information: Fracture, Foot (Electronically signed by Kika Allan MD 05/08/2017 12:01)
--- NOTE | 2017-05-08 12:02 | ED MAR SUMMARY ---
..... Medication Administration Record [facility] [address] [address] Patient: VICTORIANO GARVIN Visit ID: [id number] 36y, F Weight: 92.9 kg Height/Length: 65 in BMI: 34.1 ALLERGIES: Zithromax Given 23:04/29/2017 Margarita Vargas, RShereenNShereen Medication Administered: IBUPROFEN [PO], Dose: 800 mg PO. Medication Ordered: Ibuprofen PO 800 mg (NOW). Given 23:04/29/2017 Margarita Vargas, RShereenN. Medication Administered: TYLENOL W CODEINE [PO] (ACETAMINOPHEN-CODEINE), Dose: 1 tab PO. Medication Ordered: Tylenol w Codeine PO 1 tab (HIGH ALERT MEDICATION, NOW).
--- NOTE | 2017-05-08 12:02 | ED MED RECONCILIATION SUMMARY ---
Patient: VICTORIANO GARVNI Medication Reconciliation Report [facility] VisitID: [id number] [place] [address] 36y, F Registration Date/Time: 04/29/2017 Weight: 92.9 kg Height/Length: 65 in. BMI: 34.1 ALLERGIES: Zithromax The patient's Home Medications are listed below: CONTINUE TAKING THE FOLLOWING MEDICATIONS: Cyclobenzaprine HCl Oral 10 mg, at bedtime Cymbalta Oral Lisinopril Oral 10 mg, daily Ranitidine HCl Oral 150 mg, 2x a day The source(s) of the original Home Medication information: Not obtained. The following Medications were given to the patient in the Emergency Department: Ibuprofen [PO] PO 800 mg, administered: 04/29/2017 11:17:00 PM TYLENOL W CODEINE [PO] PO 1 tab, administered: 04/29/2017 11:17:00 PM The following Medications were prescribed to the patient: Hydrocodone/APAP 5mg / 325mg: take 1-2 orally every 4 hours as needed for pain. Dispense twenty (20). No refill. -- Kika Allan MD
--- NOTE | 2017-05-08 12:02 | ED MED RECONCILIATION SUMMARY ---
Patient: VICTORIANO GARVIN Medication Reconciliation Report [facility] VisitID: [id number] [place] [address] 36y, F Registration Date/Time: 04/29/2017 Weight: 92.9 kg Height/Length: 65 in. BMI: 34.1 ALLERGIES: Zithromax The patient's Home Medications are listed below: CONTINUE TAKING THE FOLLOWING MEDICATIONS: Cyclobenzaprine HCl Oral 10 mg, at bedtime Cymbalta Oral Lisinopril Oral 10 mg, daily Ranitidine HCl Oral 150 mg, 2x a day The source(s) of the original Home Medication information: Not obtained. The following Medications were given to the patient in the Emergency Department: Ibuprofen [PO] PO 800 mg, administered: 04/29/2017 11:17:00 PM TYLENOL W CODEINE [PO] PO 1 tab, administered: 04/29/2017 11:17:00 PM The following Medications were prescribed to the patient: Hydrocodone/APAP 5mg / 325mg: take 1-2 orally every 4 hours as needed for pain. Dispense twenty (20). No refill. -- Kika Allan MD
== END 2017-04-29 23:58 | disposition home or self-care (01) ==
LOC: ED SRH 22:19
DX: S92.355A Nondisplaced fracture of fifth metatarsal bone, left foot, initial encounter for closed fracture (principal); W22.8XXA Striking against or struck by other objects, initial encounter; Y93.9 Activity, unspecified; Y99.9 Unspecified external cause status; Y92.009 Unspecified place in unspecified non-institutional (private) residence as the place of occurrence of the external cause; K21.9 Gastro-esophageal reflux disease without esophagitis; Z87.81 Personal history of (healed) traumatic fracture; Z79.899 Other long term (current) drug therapy; Z88.1 Allergy status to other antibiotic agents